=== PATIENT | female | born 1960 ===

== ENCOUNTER 2021-05-04 14:34 | Emergency (ER) | payer OTHER ==
[~2021-05-04] VITALS: Ht 160 cm; Wt 59.0 kg
[2021-05-04 14:50] VITALS: BP 182/106
[2021-05-04] MEDS ORDERED: methylPREDNISolone SOD SUCC 125 MG/2 ML VL IM ONE (15:00)
== END 2021-05-04 17:07 | disposition home or self-care (01) ==
LOC: ER 14:34
DX: J40 Bronchitis, not specified as acute or chronic (principal); I10 Essential (primary) hypertension
CPT/HCPCS: 71046; 96372